=== PATIENT | male | born 1945 | race Caucasian/White ===

== ENCOUNTER 2021-09-18 11:29 | Inpatient (IN) | payer OTHER ==
[2021-09-18] MEDS ORDERED: ACETAMINOPHEN 1000 MG/100 ML BAG IVPB ONE (12:51)
[2021-09-18] MEDS ORDERED: ACETAMINOPHEN INJECTION 100 ML IVPB ONE (13:06)
[2021-09-18 13:50] LABS: BASO % 0.2 % (0-2.0); HEMATOCRIT 45.5 % (35.4-49); HEMOGLOBIN 15.6 GM/dL (11.7-16.9); LYMPH % 9.3 % (8-40); MCH 32.2 pg (25.7-33.7); MCHC 34.4 g/dl (32.0-35.9); MEAN CELL VOLUME 93.5 fl (80-96); MEAN PLT VOLUME 8.2 fl (7.5-11.1); MONO % 7.7 % (3.8-10.2); NEUT % 82.8 % (42.8-82.8); PLATELET COUNT 110 10^3/uL (134-434); RBC 4.86 M/mm3 (4.00-5.60); RDW 13.6 % (11.9-15.9); WHITE BLOOD COUNT 3.8 K/mm3 (4.0-10.0)
[2021-09-18 13:56] LABS: VENOUS BASE EXCESS -0.7 mmol/L (-2-2); VENOUS O2 SATURATION 58.2 % (70-80); VENOUS PH 7.383 (7.310-7.410)
[2021-09-18 13:57] LABS: INR 1.04 (0.83-1.09); PROTHROMBIN TIME (PATIENT) 12.2 SEC (9.7-13.0)
[2021-09-18 14:00] LABS: ACTIVATED PTT 31.2 SECONDS (25.2-36.5)
[2021-09-18 14:13] LABS: CHLORIDE 101 mmol/L (98-107); SODIUM 135 mmol/L (136-145)
[2021-09-18 14:15] LABS: CALCIUM 8.2 mg/dL (8.5-10.1)
[2021-09-18 14:16] LABS: ALBUMIN 3.4 g/dl (3.4-5.0); ANION GAP 9 MMOL/L (8-16); CO2 25 mmol/L (21-32); MAGNESIUM 2.3 mg/dL (1.8-2.4)
[2021-09-18 14:19] LABS: CREATININE 1.1 mg/dL (0.55-1.3); SGOT/AST 117 U/L (15-37); SGPT/ALT 80 U/L (13-61)
[2021-09-18 14:20] LABS: BILIRUBIN,TOTAL 0.5 mg/dL (0.2-1)
[2021-09-18 14:21] LABS: TOT PROT 7.6 g/dl (6.4-8.2)
[2021-09-18 14:22] LABS: ALK PHOS 74 U/L (45-117)
[2021-09-18 14:25] LABS: BLOOD UREA NITROGEN 18.5 mg/dL (7-18); GLUCOSE,RANDOM 97 mg/dL (74-106)
[2021-09-18] MEDS ORDERED: DEXAMETHASONE SOD PHOSPHATE 10 MG/1 ML VIAL IVPUSH ONE (17:07)
[2021-09-18] MEDS ORDERED: ALBUTEROL SO4 HFA INHALER IH PRN (18:27)
[2021-09-18] MEDS ORDERED: DEXAMETHASONE SOD PHOSPHATE 10 MG/1 ML VIAL ONE (18:32)
[2021-09-18 19:46] LABS: EPI CELLS 2 /uL (0-25.1); HYALINE CASTS 1 /uL (0-3.1); PH,URINE 6.5 (5.0-8.0); URINE APPEARANCE CLEAR; URINE BACTERIA 1 /uL (0-1359); URINE BILIRUBIN NEGATIVE (NEGATIVE); URINE COLOR YELLOW; URINE GLUCOSE (UA) NEGATIVE (NEGATIVE); URINE KETONE NEGATIVE (NEGATIVE); URINE LEUK ESTERASE NEGATIVE (NEGATIVE); URINE NITRITE NEGATIVE (NEGATIVE); URINE PROTEIN 2+ (NEGATIVE); URINE RBC 3 /uL (0-23.9); URINE UROBILINOGEN 0.2 mg/dL (0.2-1.0); URINE WBC 5 /uL (0-25.8)
[2021-09-19] MEDS: BUDESONIDE/FORMETEROL FUMARATE 80/4.5 mcg INHALER IH SCH ×4 (00:08→21:10)
[2021-09-19] MEDS: DEXAMETHASONE SOD PHOSPHATE 4 MG/1 ML VIAL IVPUSH SCH (09:35)
[2021-09-19] MEDS: ENOXAPARIN NA (PORCINE) 30 MG/0.3 ML DISP.SYRIN SQ SCH (09:37)
[2021-09-19] MEDS ORDERED: ENOXAPARIN NA (PORCINE) 40 MG/0.4 ML DISP.SYRIN SQ SCH (10:00)
[2021-09-19] MEDS ORDERED: REMDESIVIR 200 MG in SODIUM CHLORIDE 250 ML IVPB ONE (13:00)
[2021-09-19] MEDS ORDERED: PT OWN MED DRAWER 7, Y5N ONE (13:01)
[2021-09-20] MEDS ORDERED: ACETAMINOPHEN 325 MG TABLET (FP) PO ONE ×2 (06:13→22:12)
[2021-09-20] MEDS ORDERED: PT OWN MED DRAWER 7, Y5N ONE (10:19)
[2021-09-20] MEDS: DEXAMETHASONE SOD PHOSPHATE 4 MG/1 ML VIAL IVPUSH SCH (10:22)
[2021-09-20] MEDS: ENOXAPARIN NA (PORCINE) 30 MG/0.3 ML DISP.SYRIN SQ SCH (10:24)
[2021-09-20] MEDS: BUDESONIDE/FORMETEROL FUMARATE 80/4.5 mcg INHALER IH SCH ×2 (10:25→21:48)
[2021-09-20 10:29] LABS: BASO % 0.1 % (0-2.0); HEMATOCRIT 40.2 % (35.4-49); LYMPH % 6.2 % (8-40); MEAN CELL VOLUME 91.4 fl (80-96); MEAN PLT VOLUME 8.1 fl (7.5-11.1); MONO % 5.9 % (3.8-10.2); NEUT % 87.8 % (42.8-82.8); PLATELET COUNT 151 10^3/uL (134-434); RDW 13.5 % (11.9-15.9); WHITE BLOOD COUNT 7.5 K/mm3 (4.0-10.0)
[2021-09-20 11:07] LABS: BLOOD UREA NITROGEN 14.6 mg/dL (7-18); CALCIUM 7.5 mg/dL (8.5-10.1)
[2021-09-20 11:10] LABS: CREATININE 0.8 mg/dL (0.55-1.3)
[2021-09-20 11:11] LABS: BILIRUBIN,TOTAL 0.5 mg/dL (0.2-1); TOT PROT 6.7 g/dl (6.4-8.2)
[2021-09-20] MEDS: REMDESIVIR 100 MG in SODIUM CHLORIDE 250 ML IVPB SCH (13:04)
[2021-09-20 13:32] LABS: ALBUMIN 2.6 g/dl (3.4-5.0)
[2021-09-20] MEDS ORDERED: MELATONIN 5 MG TABLETS PO ONE (22:12)
[2021-09-20] MEDS: guaiFENesin 200 MG/10 ML 10 ML UNIT-DOSE CUPS PO PRN (22:32)
[2021-09-21] MEDS: DEXAMETHASONE SOD PHOSPHATE 4 MG/1 ML VIAL IVPUSH SCH (10:43)
[2021-09-21] MEDS: BUDESONIDE/FORMETEROL FUMARATE 80/4.5 mcg INHALER IH SCH ×2 (10:44→21:57)
[2021-09-21] MEDS: ENOXAPARIN NA (PORCINE) 30 MG/0.3 ML DISP.SYRIN SQ SCH (10:44)
[2021-09-21] MEDS: REMDESIVIR 100 MG in SODIUM CHLORIDE 250 ML IVPB SCH (12:52)
[2021-09-21 17:38] VITALS: BMI 19.0
[2021-09-22] MEDS ORDERED: PT OWN MED DRAWER 7, Y5N ONE (09:59)
[2021-09-22] MEDS: DEXAMETHASONE SOD PHOSPHATE 4 MG/1 ML VIAL IVPUSH SCH (10:07)
[2021-09-22] MEDS: ENOXAPARIN NA (PORCINE) 30 MG/0.3 ML DISP.SYRIN SQ SCH (10:08)
[2021-09-22] MEDS: BUDESONIDE/FORMETEROL FUMARATE 80/4.5 mcg INHALER IH SCH ×2 (10:09→21:32)
[2021-09-22 12:29] LABS: ALBUMIN 2.3 g/dl (3.4-5.0); CALCIUM 7.8 mg/dL (8.5-10.1)
[2021-09-22 12:30] LABS: BLOOD UREA NITROGEN 22.6 mg/dL (7-18)
[2021-09-22 12:33] LABS: CREATININE 0.8 mg/dL (0.55-1.3)
[2021-09-22 12:34] LABS: BILIRUBIN,TOTAL 0.8 mg/dL (0.2-1)
[2021-09-22] MEDS: REMDESIVIR 100 MG in SODIUM CHLORIDE 250 ML IVPB SCH (12:41)
[2021-09-22] MEDS: guaiFENesin 200 MG/10 ML 10 ML UNIT-DOSE CUPS PO PRN (21:32)
[2021-09-23 08:30] LABS: HEMATOCRIT 41.5 % (35.4-49); HEMOGLOBIN 14.3 GM/dL (11.7-16.9); MCH 32.1 pg (25.7-33.7); MCHC 34.4 g/dl (32.0-35.9); MEAN CELL VOLUME 93.1 fl (80-96); MEAN PLT VOLUME 8.1 fl (7.5-11.1); PLATELET COUNT 236 10^3/uL (134-434); RBC 4.45 M/mm3 (4.00-5.60); RDW 13.4 % (11.9-15.9); WHITE BLOOD COUNT 6.6 K/mm3 (4.0-10.0)
[2021-09-23 08:50] LABS: ALBUMIN 2.3 g/dl (3.4-5.0)
[2021-09-23 08:53] LABS: CREATININE 0.7 mg/dL (0.55-1.3)
[2021-09-23] MEDS: DEXAMETHASONE SOD PHOSPHATE 4 MG/1 ML VIAL IVPUSH SCH (11:09)
[2021-09-23] MEDS: ENOXAPARIN NA (PORCINE) 30 MG/0.3 ML DISP.SYRIN SQ SCH (11:09)
[2021-09-23] MEDS: BUDESONIDE/FORMETEROL FUMARATE 80/4.5 mcg INHALER IH SCH ×2 (11:09→21:41)
[2021-09-23] MEDS: REMDESIVIR 100 MG in SODIUM CHLORIDE 250 ML IVPB SCH (13:41)
[2021-09-23] MEDS: guaiFENesin 200 MG/10 ML 10 ML UNIT-DOSE CUPS PO PRN (21:41)
[2021-09-24] MEDS: ENOXAPARIN NA (PORCINE) 30 MG/0.3 ML DISP.SYRIN SQ SCH (10:26)
[2021-09-24] MEDS: BUDESONIDE/FORMETEROL FUMARATE 80/4.5 mcg INHALER IH SCH (10:26)
[2021-09-24] MEDS: DEXAMETHASONE SOD PHOSPHATE 4 MG/1 ML VIAL IVPUSH SCH (10:26)
[2021-09-24 14:35] VITALS: BP 107/60; PULSE 75; TEMP 98.6
== END 2021-09-24 19:27 | disposition home or self-care (01) | DRG 177 ==
LOC: JER 11:29 → JERBED 16:34 → J8W 09-19 02:56
PROVIDERS: ADMIT Internal Medicine
PROC: XW033E5 Introduction of Remdesivir Anti-infective into Peripheral Vein, Percutaneous Approach, New Technology Group 5 (ICD-10-PCS; principal; 2021-09-19)
DX: U07.1 COVID-19 (principal); J12.82 Pneumonia due to coronavirus disease 2019; J96.01 Acute respiratory failure with hypoxia; R51.9 Headache, unspecified; D69.6 Thrombocytopenia, unspecified; E78.5 Hyperlipidemia, unspecified; R25.1 Tremor, unspecified; R74.01 Elevation of levels of liver transaminase levels
CPT/HCPCS: 36415; 70450-TC; 70551-TC; 71045-TC-FY; 71275-TC; 80048; 80053; 81003; 82550; 82607; 82728; 82803; 83615; 83735; 84439; 84443; 84484; 85025; 85027; 85379; 85610; 85730; 86140; 86780; 87040; 87086; 87804; 87807; 93005; 93010; 93971-TC; 94761; 97116-GP; 97162-GP; 99285-25; C9399; C9803; J0131; J1100; Q9967; U0003; U0005